=== PATIENT | female | born 1945 | race Caucasian/White ===

== ENCOUNTER 2018-03-09 08:40 | Day surgery (SDC) | payer OTHER ==
[~2018-03-09] VITALS: Ht 152.4 cm; Wt 80.5 kg
[~2018-03-09 08:40] MED LIST: ACET-66 PO; ASPI81 PO; BACL10TA PO; CARV3 PO; ENAL10TA2 PO; FISH1CAP27 PO; HYDR25TA PO; METF500T6 PO; NITR0.4T50 SL; PRAV20TA4 PO; SIMV-259 PO; SIMV-261 PO
[2018-03-09] MEDS ORDERED: 0.9% SODIUM CHLORIDE 10 ML SYRINGE IVP PRN (08:45)
[2018-03-09] MEDS ORDERED: METOPROLOL TARTRATE 50 MG TABLET ONE (09:19)
[2018-03-09] MEDS ORDERED: METOPROLOL TARTRATE 50 MG TABLET PO ONE (09:30)
[2018-03-09 09:52] LABS: ANION GAP 13 mmol/L (8-16); CALCIUM, TOTAL 9.2 mg/dL (8.8-10.5); CARBON DIOXIDE 22 mmol/L (22-29); CHLORIDE 104 mmol/L (98-107); CREATININE 0.75 mg/dL (0.60-1.30); GLOMERULAR FILTR. RATE CALC > 60 mL/min (>60); GLUCOSE,RANDOM 113 mg/dL (70-110); POTASSIUM 4.2 mmol/L (3.5-5.1); SODIUM SERUM 139 mmol/L (136-145); UREA NITROGEN, BLOOD 21 mg/dL (7-18)
[2018-03-09] MEDS ORDERED: IOVERSOL 350 MG/ML 150 ML VIAL ONE (10:19)
[2018-03-09] MEDS ORDERED: SODIUM CHLORIDE 0.9% 100 ML ONE (10:20)
[2018-03-09] MEDS ORDERED: NITROGLYCERIN 400 MCG/SUBLINGUAL SPRAY 4.9 GM BOTTLE SL ONE (10:26)
[2018-03-09] MEDS ORDERED: METOPROLOL TARTRATE 5 MG/5 ML VIAL ONE (10:40)
[2018-03-09] MEDS ORDERED: METOPROLOL TARTRATE 5 MG/5 ML VIAL IVP ONE (10:40)
== END 2018-03-09 11:35 | disposition home or self-care (01) ==
LOC: SURGERY 08:40 → EDSTATUS 10:30 → SURGERY 11:35
PROVIDERS: ATTEND Internal Medicine Cardiovascular Disease
DX: I25.10 Atherosclerotic heart disease of native coronary artery without angina pectoris (principal); I25.89 Other forms of chronic ischemic heart disease; E78.5 Hyperlipidemia, unspecified; E11.9 Type 2 diabetes mellitus without complications; I11.0 Hypertensive heart disease with heart failure; I50.9 Heart failure, unspecified; Z98.41 Cataract extraction status, right eye; Z98.42 Cataract extraction status, left eye; Z79.891 Long term (current) use of opiate analgesic; Z79.84 Long term (current) use of oral hypoglycemic drugs; Z90.722 Acquired absence of ovaries, bilateral; Z79.82 Long term (current) use of aspirin; Z79.899 Other long term (current) drug therapy; Z98.890 Other specified postprocedural states
CPT/HCPCS: 36415; 75574; 80048; 93005; J3490; J7050; Q9967